=== PATIENT | female | born 1980 | race Caucasian/White ===

== ENCOUNTER 2021-12-13 18:56 | Emergency (ER) | payer BC ==
[2021-12-13] MEDS ORDERED: HYDROmorphone 0.5 MG/0.5 ML Syringe IM ONE (19:27)
[2021-12-13] MEDS ORDERED: Metoclopramide 10 MG/2 ML SDV IM ONE (19:27)
[2021-12-13] MEDS ORDERED: diphenhydrAMINE 50 MG/ML SDV IM ONE (19:27)
== END 2021-12-13 20:45 | disposition home or self-care (01) ==
LOC: JD.ED 18:56
DX: R51.9 Headache, unspecified (principal); Z79.899 Other long term (current) drug therapy; Z90.49 Acquired absence of other specified parts of digestive tract
CPT/HCPCS: 96372; 99283; J1170; J1200; J2765